=== PATIENT | male | born 1980 ===

== ENCOUNTER 2019-11-02 21:01 | Emergency (ER) | payer BC ==
--- NOTE | 2019-11-02 21:52 | UC ---
Throat Pain/Nasal Vincent HPI - HPI Summary HPI Summary: 39 y/o male presents to the urgent care c/o Subjective fever, bodyaches, s/t, states has had changes to color of tongue, slight cough, slight SOB, sinus congestion, swelling in facial cheeks. States last traveled to [place] 1 week ago. - History of Current Complaint Stated Complaint: SORE THROAT Time Seen by Provider: 11/02/19 21:51 Hx Obtained From: Patient - Allergies/Home Medications Allergies/Adverse Reactions: Allergies Allergy/AdvReac Type Severity Reaction Status Date / Time No Known Allergies Allergy Verified 11/02/19 21:54 Home Medications: Home Medications NK [No Home Medications Reported] 11/02/19 [History Confirmed 11/02/19] Throat Pain/Nasal Course/Dx - Differential Dx/Diagnosis Differential Diagnosis/HQI/PQRI: Influenza, Laryngitis, Pharyngitis, URI Provider Diagnosis: Pharyngitis Discharge ED - Sign-Out/Discharge Documenting (check all that apply): Patient Departure - D/C home All imaging exams completed and their final reports reviewed: No Studies - Discharge Plan Condition: Stable Disposition: HOME Patient Education Materials: Pharyngitis (ED) Referrals: [facility] [Outside] - 3 Days Additional Instructions: 1-Rapid influenza A&B: negative. Rapid strep negaitve. 2-Please take ibuprofen PO q6-8hrs prn as instructed after meals to alleviate pain and swelling. Increase fluid intake, eat well, rest and avoid strenuous exercise 3-If symptoms do not improve or worsen please return to the urgent care or f/u with your PCP in 2-3 for further evaluation and treatment. - Billing Disposition and Condition Condition: STABLE Disposition: Home
[2019-11-02 21:59] VITALS: BP 124/85
[2019-11-02 22:12] LABS: Influenza A Molecular Negative (Negative); Influenza B Molecular Negative (Negative)
[2019-11-02] MEDS ORDERED: Ibuprofen TAB* 400 MG PO ONE (22:14)
== END 2019-11-02 22:25 | disposition home or self-care (01) ==
LOC: UCEAST 21:01
DX: J02.9 Acute pharyngitis, unspecified (principal); R05 Cough; M79.10 Myalgia, unspecified site; R09.81 Nasal congestion
CPT/HCPCS: 87651; 99201; A9270-GY; G0463